=== PATIENT | male | born 1950 | race Caucasian/White ===

== ENCOUNTER 2021-12-24 07:27 | Day surgery (SDC) | payer OTHER, BC ==
[2021-12-22 12:39] VITALS: BMI 29.7
[2021-12-24] MEDS ORDERED: LIDOCAINE HCL/PF 2% SDV 5ML VIAL ONE (07:43)
[2021-12-24] MEDS ORDERED: PROPOFOL 20 ML ONE ×4 (07:43)
[2021-12-24 09:16] VITALS: BP 132/83; PULSE 67; TEMP 97.6
== END 2021-12-24 09:17 | disposition home or self-care (01) ==
LOC: FASU-ENDO 07:27
PROVIDERS: ATTEND Internal Medicine Gastroenterology
PROC: 0DBM8ZX Excision of Descending Colon, Via Natural or Artificial Opening Endoscopic, Diagnostic (ICD-10-PCS; principal; 2021-12-24 08:12)
DX: Z86.010 Personal history of colon polyps (principal); Z80.0 Family history of malignant neoplasm of digestive organs; D12.4 Benign neoplasm of descending colon; K57.30 Diverticulosis of large intestine without perforation or abscess without bleeding
CPT/HCPCS: 88305-TC